=== PATIENT | female | born 1995 | race Caucasian/White ===

== ENCOUNTER 2021-04-12 18:36 | Inpatient (IN) | payer OTHER, SELFPAY ==
[2021-04-12] MEDS ORDERED: Misoprostol 200 MCG TAB PR PRN (21:31)
[2021-04-12] MEDS ORDERED: Butorphanol Tartrate 1 MG/ML VIAL SLOW IVP PRN (21:31)
[2021-04-12] MEDS ORDERED: HYDROcodone/Acetaminophen 5/325 mg Tablet PO PRN ×2 (21:31)
[2021-04-12] MEDS ORDERED: NS w/ Oxytocin 30 units 500 ML IV SCH (21:31)
[2021-04-12] MEDS ORDERED: Methylergonovine 0.2 MG/ML VIAL IM PRN (21:31)
[2021-04-12] MEDS ORDERED: Ibuprofen 800 MG TAB PO PRN (21:31)
[2021-04-12] MEDS ORDERED: hydrALAZINE 20 MG/ML VIAL SLOW IVP PRN (21:31)
[2021-04-12] MEDS ORDERED: Lidocaine 1% (PF) 30 ML VIAL SC PRN (21:31)
[2021-04-12] MEDS ORDERED: Acetaminophen 500 MG TAB PO PRN (21:31)
[2021-04-12] MEDS ORDERED: Ondansetron PF 4 MG/2 ML Vial IVP PRN ×2 (21:31)
[2021-04-12] MEDS ORDERED: Hydrocortisone Sod Succ/PF 100 mg/2 ml Vial IVP SCH (21:45)
[2021-04-12 21:56] LABS: Hemoglobin 11.5 g/dL (12.0-15.5); Mean Corpuscular HGB CONC 32.3 g/dL (32.0-36.0); Mean Corpuscular Hemoglobin 28.4 pg (27.0-33.0); Mean Corpuscular Volume 87.9 fl (81.6-98.3); Mean Platelet Volume 14.1 fl (7.4-10.4); Platelet Count 156 10x3/uL (150-450); RBC Distribution Width 14.5 % (11.5-14.5); Red Blood Cell (RBC) Count 4.05 10x6/uL (3.90-5.03); White Blood Cell (WBC) Count 10.6 10x3/uL (3.5-10.5)
[2021-04-12] MEDS: Hydrocortisone Sod Succ/PF 100 mg/2 ml Vial IVP SCH (22:16)
[2021-04-12 22:28] LABS: Hep B Surf Ag Non-Reactive S/CO (NonReactive); Syphilis Antibody Nonreactive (Nonreactive); Syphilis Antibody Index 0.04 S/CO (<1.00 Non-Reactive)
[2021-04-12 22:33] LABS: HBSAg Index 0.19 S/CO (0-0.99)
[2021-04-12] MEDS ORDERED: Fentanyl 100 MCG/2 ML VIAL ONE (23:15)
[2021-04-12 23:23] VITALS: BMI 22.2
[2021-04-12] MEDS ORDERED: Fentanyl 2 mcg/Bup 0.1% Cadd 100 ML ONE (23:51)
[2021-04-13] MEDS: Lactated Ringer's 1,000 ML IV SCH ×2 (00:51→20:04)
[2021-04-13] MEDS ORDERED: Naloxone HCl 0.4 mg/ml Vial IVP PRN ×2 (01:30)
[2021-04-13] MEDS ORDERED: Hydrocerin (Eucerin) Cream 120 gm Jar TOP PRN (01:30)
[2021-04-13] MEDS ORDERED: diphenhydrAMINE 50 MG/ML VIAL IVP PRN (01:30)
[2021-04-13] MEDS ORDERED: Ondansetron PF 4 MG/2 ML Vial IVP PRN ×2 (01:30→06:03)
[2021-04-13] MEDS ORDERED: Lactated Ringer's 500 ML IV PRN (01:30)
[2021-04-13] MEDS ORDERED: Fentanyl 2 mcg/Bupivacaine 0.1% Cassette 100 ML EPIDURAL SCH (01:30)
[2021-04-13] MEDS ORDERED: ePHEDrine Sulfate 50 MG/10 ML VIAL SLOW IVP PRN (01:30)
[2021-04-13] MEDS ORDERED: Communication Order-Pharmacy FS SCH (01:30)
[2021-04-13] MEDS ORDERED: Promethazine HCl 25 MG/ML VIAL IM PRN (01:30)
[2021-04-13] MEDS ORDERED: Acetaminophen 325 MG TAB PO PRN (01:30)
[2021-04-13] MEDS: Hydrocortisone Sod Succ/PF 100 mg/2 ml Vial IVP SCH (03:55)
[2021-04-13 05:25] LABS: SARS-CoV-2 NAA Rapid Test Not Detected (NotDetected)
[2021-04-13] MEDS ORDERED: Lanolin Ointment 7 GM TUBE TOP PRN (06:03)
[2021-04-13] MEDS ORDERED: Milk Of Magnesia 30 ML UDCUP PO PRN (06:03)
[2021-04-13] MEDS ORDERED: Benzocaine-Menthol 82.5 ML CAN TOP PRN (06:03)
[2021-04-13] MEDS ORDERED: Bisacodyl 10 MG SUPP PR PRN (06:03)
[2021-04-13] MEDS ORDERED: HYDROcodone/Acetaminophen 5/325 mg Tablet PO PRN ×2 (06:03)
[2021-04-13] MEDS ORDERED: hydrALAZINE 20 MG/ML VIAL SLOW IVP PRN (06:03)
[2021-04-13] MEDS ORDERED: Misoprostol 200 MCG TAB VAG PRN (06:03)
[2021-04-13] MEDS ORDERED: diphenhydrAMINE 25 MG CAP PO PRN (06:03)
[2021-04-13] MEDS ORDERED: Preparation H Ointment 28 GM TUBE PR PRN (06:03)
[2021-04-13] MEDS ORDERED: Zolpidem Tartrate 5 MG TAB PO PRN (06:03)
[2021-04-13] MEDS ORDERED: NS w/ Oxytocin 30 units 500 ML IV SCH (06:15)
[2021-04-13] MEDS: Docusate Calcium (SURFAK) 240 MG CAP PO SCH ×2 (10:27→20:24)
[2021-04-13] MEDS: Prenatal Vitamin 1 TAB PO SCH (10:27)
[2021-04-13] MEDS: Ferrous Sulfate 325 MG TAB PO SCH ×2 (10:28→18:46)
[2021-04-13] MEDS: Ibuprofen 800 MG TAB PO SCH (20:24)
[2021-04-14] MEDS: Ibuprofen 800 MG TAB PO SCH (04:58)
[2021-04-14] MEDS ORDERED: Boostrix 0.5 ML (Tdap) VIAL IM ONE (06:03)
[2021-04-14] MEDS: Ferrous Sulfate 325 MG TAB PO SCH (07:11)
[2021-04-14 08:05] VITALS: BP 101/60; TEMP 97.9
[2021-04-14] MEDS: Prenatal Vitamin 1 TAB PO SCH (08:12)
[2021-04-14] MEDS: Docusate Calcium (SURFAK) 240 MG CAP PO SCH (08:12)
== END 2021-04-14 11:30 | disposition home or self-care (01) | DRG 807 ==
LOC: CSHLD/OP 18:36 → UNDOADMIN 21:16 → CSHLD 21:16 → CSHPP 04-13 08:29
PROVIDERS: ADMIT Obstetrics & Gynecology; ATTEND Obstetrics & Gynecology
PROC: 10E0XZZ Delivery of Products of Conception, External Approach (ICD-10-PCS; principal; 2021-04-13)
PROC: 0HQ9XZZ Repair Perineum Skin, External Approach (ICD-10-PCS; 2021-04-13)
DX: O70.0 First degree perineal laceration during delivery (principal); Z37.0 Single live birth; Z20.822 Contact with and (suspected) exposure to COVID-19; Z3A.37 37 weeks gestation of pregnancy
CPT/HCPCS: 36415; 51702; 85027; 86780; 86850; 86900; 86901; 87340; 99285; J1720; J2590; J7120; U0002

== ENCOUNTER 2023-08-24 17:52 | Day surgery (SDC) | payer SELFPAY ==
[2023-08-24 19:06] LABS: Fetal Membranes Rupture No Membranes Rupture (No Rupture)
[2023-08-24 19:40] LABS: Bilirubin Neg (Negative); Blood, Urine Negative (Negative); Clarity Clear (Clear); Glucose, Urine (Dipstick) Normal (Negative); Ketone, Urine Negative (Negative); Leukocyte Negative (Negative); Nitrite Negative (Negative); Protein, Urine (Dipstick) Negative (Neg-Trace); Urobilinogen Normal mg/dL (Less than 2); pH, Urine 6.5 (5.0-9.0)
[2023-08-24 19:48] LABS: Bacteria/HPF Rare-Few HPF (None Seen); CAUTI Indications for Culture Pregnancy; RBC/HPF None Seen HPF (0-3); Squamous Epithelial 0-3 HPF (0-3); WBC/HPF 0-3 HPF (0-3)
[2023-08-24 19:49] LABS: Urine Culture Reflex Yes Yes
== END 2023-08-24 21:30 | disposition home or self-care (01) ==
LOC: CSHLD/OP 17:52
PROVIDERS: ATTEND Obstetrics & Gynecology
DX: O47.1 False labor at or after 37 completed weeks of gestation (principal); O99.283 Endocrine, nutritional and metabolic diseases complicating pregnancy, third trimester; E03.9 Hypothyroidism, unspecified; E27.1 Primary adrenocortical insufficiency; Z79.890 Hormone replacement therapy; Z79.899 Other long term (current) drug therapy
CPT/HCPCS: 81001; 84112; 87086